=== PATIENT | male | born 1985 | race Caucasian/White ===

== ENCOUNTER 2019-05-13 23:52 | Emergency (ER) | payer OTHER, SELFPAY ==
[2019-05-13 23:59] VITALS: BP 125/90; PULSE 72; RESP 18; TEMP 36.4; O2SAT 98
--- NOTE | 2019-05-14 00:12 | ED_ITS ---
HPI - Allergic Reaction General Chief complaint: Allergic Reaction Stated complaint: eyes/facial swelling Time Seen by Provider: 05/13/19 23:55 Source: patient Mode of arrival: Ambulatory Limitations: no limitations History of Present Illness HPI narrative: 33-year-old male nonsmoker with benign medical history presents with a chief complaint of a relatively isolated episode of some facial swelling over the past few hours. He denies any exposure to new elements such as food, soap, lotion, medications or other. He has swelling of his bilateral upper eyelids only. He denies any swelling of tongue, lip or throat. He denies any rash, trouble breathing, abdominal pain or diarrhea. He did have this happen 1 time a few years ago and the etiology was unknown. Related Data Previous Rx's Medication Instructions Recorded prednisone 20 mg PO DAILY #5 tab 05/14/19 Allergies Allergy/AdvReac Type Severity Reaction Status Date / Time No Known Drug Allergies Allergy Verified 05/14/19 00:03 Review of Systems Constitutional Constitutional: Denies chills, Denies fatigue, Denies fever(s), Denies frequent falls, Denies lethargy and Denies weakness Eyes Eyes: Denies change in vision, Denies eye discharge, Denies irritation and Denies loss of vision Comments: swelling lids ENT Ears, Nose, Mouth, and Throat: Denies change in voice, Denies dizziness, Denies neck pain, Denies sore throat and Denies throat swelling Cardiovascular Cardiovascular: Denies chest pain, Denies irregular heart rhythm, Denies lightheadedness, Denies palpitations, Denies dyspnea, Denies dyspnea on exertion and Denies orthopnea Respiratory Respiratory: Denies cough, Denies dyspnea, Denies dyspnea on exertion and Denies wheezing Gastrointestinal Gastrointestinal: Denies abdominal pain, Denies change in bowel habits, Denies diarrhea, Denies nausea and Denies vomiting Genitourinary Genitourinary: Denies hematuria, Denies flank pain, Denies urinary incontinence and Denies urinary urgency Musculoskeletal Musculoskeletal: Denies back pain, Denies muscle weakness, Denies neck pain, Denies numbness and Denies tingling Integumentary/Breasts Skin/Breast: Denies pruritus, Denies erythema, Denies rash and Denies wounds Neurologic Neurologic: Denies behavioral changes, Denies confusion, Denies dizziness, Denies frequent falls, Denies loss of vision, Denies numbness, Denies tingling and Denies weakness Psychiatric Psychiatric: Denies anxiety, Denies behavioral changes, Denies confusion, Denies depression, Denies homicidal ideation and Denies suicidal ideation Endocrine Endocrine: Denies fatigue, Denies flushing and Denies palpitations Hematologic/Lymphatic Hematologic/Lymphatic: Denies easy bruising Allergic/Immunologic Allergic/Immunologic: Denies urticaria, Denies throat swelling and Denies wheezing Patient History Social History Smoking Status: Never smoker Smoking Status: Never smoker alcohol intake frequency: a few times a month Substance Use Type: does not use Exam Narrative Exam Narrative: GENERAL: [33] year old patient appears stated age. Well- nourished, well-developed patient, in mild distress. HEAD: Atraumatic. Normocephalic. EYES: Swollen upper lids. Pupils equal round and reactive. Extraocular motions intact. No scleral icterus. No injection or drainage. ENT: Nose without bleeding, purulent drainage. Throat without erythema, tonsillar hypertrophy or exudate. Airway patent. NECK: Trachea midline. Non tender CARDIOVASCULAR: Regular rate and rhythm without murmurs, gallops, or rubs. RESPIRATORY: Clear to auscultation. Breath sounds equal bilaterally. No wheezes, rales, or rhonchi. GASTROINTESTINAL: Abdomen soft, non-tender, nondistended. EXTREMITIES: No edema or joint tenderness. BACK: Nontender without deformity or crepitance. No flank tenderness. NEURO: AOx3. SKIN: No rash or erythema of visible areas Initial Vital Signs Initial Vital Signs: Vital Signs Temperature 97.5 F L 05/13/19 23:59 Pulse Rate 72 05/13/19 23:59 Respiratory Rate 18 05/13/19 23:59 Blood Pressure 125/90 05/13/19 23:59 Pulse Oximetry 98 05/13/19 23:59 Course Course Course Narrative: patient feeling much better after the above stated therapy Orders Ordered: Discontinued Medications Diphenhydramine HCl (Benadryl) 25 mg PO NOW ONE Stop: 05/14/19 00:11 Last Admin: 05/14/19 00:20 Dose: 25 mg Documented by: ENMANUEL Epinephrine HCl (Adrenalin) 0.5 mg IM NOW ONE Stop: 05/14/19 00:11 Last Admin: 05/14/19 00:20 Dose: 0.5 mg Documented by: ENMANUEL Prednisone (Deltasone) 60 mg PO NOW ONE Stop: 05/14/19 00:11 Last Admin: 05/14/19 00:19 Dose: 60 mg Documented by: ENMANUEL Ranitidine HCl (Zantac) 150 mg PO NOW ONE Stop: 05/14/19 00:11 Last Admin: 05/14/19 00:19 Dose: 150 mg Documented by: ENMANUEL Vital Signs Vital signs: Vital Signs - 8 hr 05/13/19 23:59 05/14/19 01:00 Temperature 97.5 F L Pulse Rate 72 75 Respiratory Rate 18 16 Blood Pressure 125/90 Blood Pressure [Left Arm] 131/69 Pulse Oximetry 98 100 Discharge Plan Departure Patient Disposition: Home Clinical Impression: Allergic reaction Qualifiers: Encounter type: initial encounter Qualified Code(s): T78.40XA - Allergy, unspecified, initial encounter Discharge Date/Time: 05/14/19 01:30 Instructions: DI for Eye Allergic Reaction Activity Restrictions/Additional Instructions: *You have been diagnosed with [allergic reaction] *What to do: *Take medications as directed: Including [id number] antihistamines *Follow up with your primary care provider in 2-3 days, call for an appointment. Let them know you were seen in the Emergency Department and that we ask that you be seen in follow up *Return to ER if you should have any new, worsening or concerning symptoms Prescriptions: New prednisone 20 mg tablet 20 mg PO DAILY Qty: 5 RF: 0
[2019-05-14] MEDS: raNITIdine 150 MG CAPSULE PO (00:19)
[2019-05-14] MEDS: predniSONE 20 MG TABLET 60 MG PO (00:19)
[2019-05-14] MEDS: diphenhydrAMINE 25 MG TABLET PO (00:20)
[2019-05-14] MEDS: EPINEPHrine 1 MG/ML 0.5 MG IM (00:20)
[2019-05-14 01:00] VITALS: BP 131/69; PULSE 75; RESP 16; O2SAT 100
== END 2019-05-14 01:30 | disposition home or self-care (01) ==
PROVIDERS: Emergency Provider Emergency Medicine
DX: T78.40XA Allergy, unspecified, initial encounter (principal)
CPT/HCPCS: 96372; 99283; 99284; J0171

== ENCOUNTER 2020-01-03 17:26 | Emergency (ER) | payer OTHER, SELFPAY ==
[2020-01-03 17:35] VITALS: BP 127/86; PULSE 68; RESP 19; TEMP 36.4; O2SAT 98; BMI 31.7
[2020-01-03] MEDS: CYCLOBENZAPRINE 10 MG TABLET PO (18:07)
[2020-01-03] MEDS: LIDOCAINE PATCH 1 EACH ADH..PATCH TOP (18:07)
[2020-01-03] MEDS: KETOROLAC 60 MG/2 ML VIAL 30 MG IM (18:08)
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
== END 2020-01-03 19:26 | disposition home or self-care (01) ==
PROVIDERS: Emergency Provider Nurse Practitioner Family
DX: M54.41 Lumbago with sciatica, right side (principal)
CPT/HCPCS: 96372; 99283; J1885